=== PATIENT | female | born 1975 | race African-American/Black ===

== ENCOUNTER 2022-05-06 17:32 | Emergency (ER) | payer SELFPAY | END 2022-05-06 18:54 | disposition home or self-care (01) | LOC: ERS 17:32 | DX: J02.9 Acute pharyngitis, unspecified (principal); R09.81 Nasal congestion; R05.9 Cough, unspecified; K21.9 Gastro-esophageal reflux disease without esophagitis; I10 Essential (primary) hypertension; Z79.899 Other long term (current) drug therapy | CPT/HCPCS: 99282 ==